=== PATIENT | male | born 2005 | race Caucasian/White ===

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

== ENCOUNTER 2024-06-26 10:38 | Outpatient (AMB) | payer OTHER, SELFPAY ==
[2024-06-26 10:51] VITALS: BP 116/78; PULSE 73; TEMP 36.6; O2SAT 98; BMI 22.2
--- NOTE | 2024-06-26 10:51 | AM.OFFWIN_ITS ---
Intake Vital Signs 06/26/24 10:51 Height 5 ft 10 in Weight 155 lb BMI 22.2 BP 116/78 Blood Pressure Location Rt brachial Position Sitting Pulse 73 Pulse Source Pulse Oximeter Temp 97.8 F Temp Source Oral Pulse Oximetry (%) 98 Oxygen Delivery Method Room Air Intake Visit Reasons: [employer] sick note for work. Intake Note: pt c/o vomiting for last 3 days, waking up every hour, Feeling sluggish and slow. Requesting work note Patient Tobacco Use Status: Never used Tobacco Allergies No Known Allergies Allergy (Verified 06/26/24 10:56) Do you need a note to return to daycare/school/sports/work: Yes HPI HPI Comments History of Present Illness Details 19 y/o male patient who presents to the walk in clinic with c/o URI symptoms x 3 days. Reports Nausea and vomiting. Denies fevers, chills or diarrhea. Today reports that symptoms have resolved. Asking for work return letter. [facility] Medical History Concussion Social History Alcohol intake: unknown Patient Tobacco Use Status: Never used Tobacco Physical Exam Vital Signs: Last Vital Signs Temp 97.8 F 06/26/24 10:51 Pulse 73 06/26/24 10:51 BP 116/78 06/26/24 10:51 Pulse Ox 98 06/26/24 10:51 Oxygen Delivery Method Room Air 06/26/24 10:51 BMI result Body Mass Index 22.2 Const General: cooperative, comfortable and no acute distress Orientation/consciousness: patient oriented x3 Resp Effort & Inspection: normal respiratory effort and able to speak in complete se ntences Auscultation: clear to auscultation bilaterally Cardio Heart sounds: S1 normal heart sound present and S2 normal heart sound present GI Inspection: Yes normal to inspection Palpation (GI): Soft to palpation, not firm, nontender, no guarding, not rigid and No hepatosplenomegaly present Auscultation: normal bowel sounds Neuro General: patient oriented x3, gait normal and moves all extremities Psych Speech and movement: Normal speech and movement present Assessment & Plan Assessment & Plan (1) URI, acute: Code(s): J06.9 - Acute upper respiratory infection, unspecified Plan: Symptoms resolved Provided work note Advised to RTC if symptoms return Coding Level of Care Code Est Pt Level 3 (66826) Diagnoses URI, acute J06.9 Time Spent (min) 15
== END 2024-06-26 11:25 | disposition home or self-care (01) ==
PROVIDERS: Visit Provider Nurse Practitioner Family
DX: J06.9 Acute upper respiratory infection, unspecified (principal)
CPT/HCPCS: 99213

== ENCOUNTER 2025-06-24 16:12 | Emergency (ER) | payer OTHER, SELFPAY ==
[2025-06-24 16:55] VITALS: BP 99/55; PULSE 55; RESP 20; TEMP 37.1; O2SAT 98; BMI 23.9
--- NOTE | 2025-06-24 16:55 | ED_ITS ---
HPI - General Adult General Chief complaint: General Medical Stated complaint: seasonal cough (just need a drQuang's note) Time Seen by Provider: 06/24/25 16:56 Source: patient Mode of arrival: ambulatory Limitations: no limitations History of Present Illness ED Provider: Vernell Johnson PA-C HPI narrative: Patient is a 20 year old assigned male at with no reported medical history presenting to the emergency department today requesting a work note. Patient states that he called off of work because of a cough and now he needs a work note but he does not want to be evaluated for the cough. Patient denies any other complaints at this time. Related Data Home Medications ?Medication ?Instructions ?Recorded ?Confirmed No Known Home Meds 06/26/24 06/26/24 Allergies Allergy/AdvReac Type Severity Reaction Status Date / Time No Known Allergies Allergy Verified 06/24/25 16:56 Review of Systems Constitutional: Constitutional: Reports as per HPI Eyes: Eyes: Reports as per HPI ENT: Reports as per HPI Cardiovascular: Cardiovascular: Reports as per HPI Respiratory: Respiratory: Reports as per HPI Gastrointestinal: Gastrointestinal: Reports as per HPI Genitourinary: Genitourinary: Reports as per HPI Musculoskeletal: Musculoskeletal: Reports as per HPI Integumentary/Breasts: Skin/Breast: Reports as per HPI Neurologic: Reports as per HPI Psychiatric: Psychiatric: Reports as per HPI Endocrine: Endocrine: Reports as per HPI Hematologic/Lymphatic: Hematologic/Lymphatic: Reports as per HPI Allergic/Immunologic: Allergic/Immunologic: Reports as per HPI PMF Past Medical History Attestation statement: The following information was validated with the patient. Source: old records reviewed and nursing notes reviewed Medical History Concussion Social History Social History Alcohol intake: unknown Patient Tobacco Use Status: Never used Tobacco Advance Directives: No Advance Directives Information Provided: Yes Do you have a plan to hurt others: No Plan Physical Exam ED Vital Signs: BMI result Body Mass Index 23.9 Const General: cooperative, no acute distress, alert and awake Nutritional Appearance: well nourished Orientation/consciousness: patient oriented x3 HENMT Head: Yes normal to inspection and Yes atraumatic Ears: hearing grossly normal bilaterally and external ears normal General nose exam: Normal external nose present, no nasal discharge noted and no epistaxis Face and sinus: Yes normal facial exam, No abrasion and No laceration Mouth: Normal oral and palatal mucosa present, no drooling and no muffled voice Eyes General: appearance normal, both eyes and all related structures Periorbital: periorbital findings normal Eyelids: Yes eyelids normal Conjunctivae: conjunctivae normal Pupils: Equal, round and reactive pupils present EOM: EOMs intact bilaterally Neck Neck: Yes normal visual inspection and Yes full ROM Resp Effort & Inspection: normal respiratory effort and able to speak in complete sentences Neuro General: patient oriented x3, moves all extremities and CN's II-XI intact bilaterally Cranial nerves: Yes Equal, round and reactive pupils present Cognition (Neuro): normal cognition Extrem General: Yes normal to inspection, Yes full ROM and Yes capillary refill normal Psych Appearance: grossly normal Mental Status: mental status grossly normal Affect: normal affect Attitude: cooperative Thought process: Normal thought process present Thought content: Normal thought content present Insight: Good insight present (Psych) Medical Decision Making Medical Decision Making MDM Narrative: Patient is a 20 year old assigned male at with no reported medical history presenting to the emergency department today requesting a work note. Patient's physical exam was unremarkable. I explained my physical exam findings to the patient. I answered all questions asked by the patient. I stressed the importance of the patient taking his medication as directed (either prescribed or as the over the counter packaging recommends). I stressed the importance of the patient following up with his primary care provider. I stressed the importance of the patient returning to the emergency department immediately if his symptoms were to worsen or if he were to develop any dizziness, shortness of breath, difficulty breathing, chest pain, blurry vision, loss of vision, nausea, vomiting, abdominal pain, fever, chills, back pain, or any other complaints. Patient verbalized agreement and understanding with this treatment plan and discharge. Differential Diagnosis Differential Diagnoses: The differential diagnosis associated with the presentation includes Cough Work note request Tests considered The following testing was considered but not selected: I would have obtained a COVID-19 + Influenza swab as well as a chest x-ray however, the patient declined to have any testing or evaluation done. Discharge Plan Discharge Clinical Impression: Cough Patient Disposition: Home, Self-Care Instructions: Viral Syndrome (ED) Additional Instructions: IF you are prescribed home medications and/or you are taking over the counter medications at home - it is very important you continue to do so as prescribed / directed unless told otherwise. Follow up with a primary care provider. Return to the emergency department immediately if your symptoms worsen or if you develop any numbness, tingling, dizziness, shortness of breath, difficulty breathing, chest pain, blurry vision, loss of vision, nausea, vomiting, abdominal pain, fever, chills, back pain, or any other complaints. If you do not have a primary care provider - call any of the below numbers to establish and follow up with a primary care provider. [facility] Primary Care ([place]) [phone] [place] [address], [address] [facility] Primary Care ([address]) [phone] [place] [address], [address] [facility], [address] [facility] Primary Care ([address]) [phone] [place] [address], [address] [facility], [address] [facility] Primary Care ([place]) [phone] [place] [address] [address] [facility], [address] [facility] Family Medicine [phone] [address] [facility], [address] Please see the information below about our Patient Portal. If you are not yet enrolled in the [facility] Patient Portal, you will receive an enrollment email invitation following your visit to any [facility] setting. You may also self-enroll in the Patient Portal by visiting our website: [email or web address] The following information is required to access the Patient Portal: - Your [facility] Medical Record Number - Your personal home email address (must match what is in your electronic medical record, Registration staff can assist with this) - Name - Date of Capabilities of the Patient Portal: - Message some providers - View upcoming appointments - Access your health summary, medical history, and visit history - View current conditions and allergies - View procedure and lab results - View your medications, including guidelines, side effects, and precautions - Complete pre-appointment questionnaires requested by your provider - Ready summary reports of your office visits and procedures To access the Patient Portal Mobile Naila, follow these directions: - Search MobileAwareth in the Naila Store or Google Play Store - Download the Naila - Search for [facility] - Enter your login/password Prescriptions: No Action No Known Home Meds Stand Alone Forms: Work/School Release Discharge Date/Time: 06/24/25 17:03 Print Language: Kinyarwanda
--- OUTSIDE RECORDS SUMMARY | 2025-06-24 18:52 | XMS_ITS | Clinical Summary ---
Author Organization [address] Address [address] [place] [phone] Phone Care Team Providers Care School Bus Driver/Teacher Assistant Name Role Phone Morgan Magallanes MD Primary Care Provider [phone] Social History Tobacco Use Types Packs/Day Years Used Date Smoking Tobacco: Never Assessed Sex and Gender Information Value Date Recorded Sex Assigned at Not on file Legal Sex Male 11:38 AM EDT Gender Identity Not on file Sexual Orientation Not on file Plan of Treatment Health Maintenance Due Date Last Done Comments HPV Vaccines (1 - Male 3-dos e series) 2018 Meningococcal B Vaccine (1 o f 2 - Standard) 2019 DTaP,Tdap,and Td Vaccines (1 - Tdap) 2022 Hepatitis B Vaccines (1 of 3 - 19+ 3-dose series) 2022 HIV Screening 08/11/2024 Hepatitis C Screening 08/11/2024 Social Influencers of Health Screening 08/11/2024 Depression Screening 10/17/2024 COVID-19 Vaccine (1 - 2023-2 5 season) 2025 Influenza Vaccine (#1) 2025 HIB Vaccines Aged Out No longer eligi ble based on patient's age to complete this topic Hepatitis A Vaccines Aged Out No long er eligible based on patient's age to complete this topic IPV Vaccines Aged Out No longer eligi ble based on patient's age to complete this topic MMR Vaccines Aged Out No longer eligi ble based on patient's age to complete this topic Meningococcal ACWY Vaccine Aged Out N o longer eligible based on patient's age to complete this topic Pneumococcal Vaccine: Pediat rics (0 to 5 Years) and At-Risk Patients (6 to 49 Years) Aged Out No longer eligible b ased on patient's age to complete this topic RSV Immunization Patients Un justine 20 months Aged Out No longer eligible b ased on patient's age to complete this topic Varicella Vaccines Aged Out No longer eligible based on patient's age to complete this topic Insurance [facility] [place] [address] Care Teams School Bus Driver/Teacher Assistant Relationship Specialty Start Date End Date Morgan Magallanes MD [address] [place] [address] PCP - General Internal Medicine 11/16/24
--- OUTSIDE RECORDS SUMMARY | 2025-06-24 18:52 | XMS_ITS | Clinical Summary ---
Author Organization [facility] Address [address] [address] Phone Care Team Providers Care Sports Cartoonist Name Role Phone Debbie Gonzales MD Unavailable Unknown, Unknown Primary Care Provider Anayeli fletcher Medications No known medications Social History Tobacco Use Types Packs/Day Years Used Date Smoking Tobacco: Never Assessed Education Answer Date Recorded Are you interested in more education? Not on taras e 02/04/2024 Are you concerned about learning? Not on file 02/04/2024 No 02/04/2024 No 02/04/2024 Digital Access Answer Date Recorded No 02/04/2024 No 02/04/2024 Reliable internet access at home? Not on file 02/04/2024 Device with a working camera? Not on file Intimate Partner Violence Answer Date R ecorded Are you denied basic needs s uch as food, clothing, or medical care? No 06/16/2024 In the past 12 months have y ou been in a relationship with a person who hurts, threatens, or tries to control you? No 06/16/2024 Are you denied basic needs s uch as food, clothing, or medical care? No 06/16/2024 In the past 12 months have y ou been in a relationship with a person who hurts, threatens, or tries to control you? No 06/16/2024 Sex and Gender Information Value Date Recorded Sex Assigned at Male 06/16/2024 1:47 AM EDT Legal Sex Male 4:09 AM EST Gender Identity Choose not to disclose 1:47 AM EDT Sexual Orientation Choose not to disclose 2023 1:47 AM EDT Last Filed Vital Signs Vital Sign Reading Time Taken Comments Blood Pressure 98/71 06/16/2024 10:27 AM EDT Pulse 88 06/16/2024 10:19 AM EDT Temperature 36.2 C (97.2 F) 06/16/2024 10:19 AM EDT Respiratory Rate 14 06/16/2024 10:19 AM EDT Oxygen Saturation 99% 06/16/2024 10:19 AM EDT Inhaled Oxygen Concentration - - Weight 65.8 kg (145 lb) 02/04/2024 8:14 AM EDT Height 172.7 cm (5' 8 ) 02/04/2024 8:14 AM EDT Body Mass Index 22.05 02/04/2024 8:14 AM EDT Plan of Treatment Health Maintenance Due Date Last Done Comments Adult Td,Tdap Booster 2003 DEPRESSION SCREENING 2015 SMOKING Hx and SMOKELESS TOBACCO SCREENING 01/22/2016 HPV VACCINES (1 - 3-dose series) 2018 MENINGOCOCCAL VACCINES (B) (1 of 2 - Standard) 2019 HEPATITIS C SCREENING 2021 HIV ONE-TIME SCREENING (18-65 YEARS) 2021 COVID-19 VACCINE ( season) 2024 INFLUENZA VACCINE (#1) 2025 HIB VACCINES Completed 11/20/2004, 03/2003, 2003, Additional history exists PNEUMOCOCCAL VACCINES (0-49 years) Aged Out 11/20/2004, 2003, 2003, Additional history exists No longer eligible based on patient's age to complete this topic HEPATITIS A VACCINES Aged Out No long er eligible based on patient's age to complete this topic MENINGOCOCCAL VACCINES (ACWY) Aged Out No longer eligible based on patient's age to complete this topic Medical Devices Not on file Insurance [facility] [employer] Care Teams Sports Cartoonist Relationship Specialty Start Date End Date Unknown, Unknown, [address] [address] PCP - General 09/26/19 Debbie Gonzales MD [address] [place] [id number] Historical LMR Provider 12/28/18 Additional Source Comments The information contained in this document represents components of the legal health record. It is not the complete legal health record.[facility]
== END 2025-06-24 17:03 | disposition home or self-care (01) ==
LOC: HO.ED 17:03
PROVIDERS: Emergency Provider Emergency Medicine
DX: R05.9 Cough, unspecified (principal); Z03.818 Encounter for observation for suspected exposure to other biological agents ruled out
CPT/HCPCS: 99281; 99282